=== PATIENT | male | born 1990 | race Caucasian/White ===

== ENCOUNTER 2017-10-04 22:02 | Emergency (ER) | payer OTHER ==
[~2017-10-04] VITALS: Ht 177.8 cm; Wt 117.8 kg
[~2017-10-04 22:02] MED LIST: DAILY VITE1 EAC1 PO; ENDOCET 5-3251 EACH PO; METHADONE 22 MG/1 ML PO; NOHOMEMEDS; PREDNISONE10 M1 PO; PROVENTIL,2.5 MG/3 M IH; VENTOLIN HFA18 GM IH; ZITHROMAX Z-PA250 MG PO
[2017-10-04 22:04] VITALS: BP 137/99
== END 2017-10-05 01:42 | disposition home or self-care (01) ==
LOC: EME 22:02
PROC: 09C47ZZ Extirpation of Matter from Left External Auditory Canal, Via Natural or Artificial Opening (ICD-10-PCS; principal; 2017-10-04)
DX: T16.2XXA Foreign body in left ear, initial encounter (principal); X58.XXXA Exposure to other specified factors, initial encounter; Z87.891 Personal history of nicotine dependence
CPT/HCPCS: 99281; 99284